=== PATIENT | male | born 1975 | race Caucasian/White ===

== ENCOUNTER 2020-06-20 11:39 | Outpatient (REF) | payer BC, SELFPAY ==
[2020-06-20 11:44] LABS: MANUAL DIFF FLAG NO
[2020-06-20 12:18] LABS: White Blood Count 6.7 X10*3/uL (4.8-10.8)
[2020-06-20 12:19] LABS: Basophils Percent Auto 0.4 % (0-2); Eosinophils Absolute Auto 0.1 X10*3/uL (0.0-0.4); Eosinophils Percent Auto 1.9 % (0-4); Hematocrit 44.2 % (42-52); Hemoglobin 14.5 g/dl (14.0-18.0); Imm Gran Abs Auto 0.02 X10*3/uL (0.00-0.03); Imm Gran Pct Auto 0.3 % (0.0-0.4); Lymphocytes Absolute Auto 2.4 X10*3/uL (1.2-4.9); Lymphocytes Percent Auto 35.6 % (20-40); Mean Corpuscular HGB Conc 32.8 g/dl (31.0-36.0); Mean Corpuscular Hemoglobin 30.9 pg (27.0-33.0); Mean Corpuscular Volume 94.2 fL (80-98); Mean Platelet Volume 9.3 fL (9.4-12.4); Monocytes Absolute Auto 0.6 X10*3/uL (0.1-1.2); Monocytes Percent Auto 8.8 % (2-11); Neutrophils Absolute Auto 3.6 X10*3/uL (2.0-8.3); Platelet Count 211 X10*3/uL (160-400); Red Blood Count 4.69 X10*6/uL (4.60-5.80); Red Cell Distribution Width 13.2 % (11.0-16.0)
[2020-06-20 12:30] LABS: Glucose Urine UA NEG (NEG); Leukocyte Esterase Urine NEG (NEG); Nitrite Urine NEG (NEG); Specific Gravity - Urine 1.025 (1.005-1.025); Urine Blood NEG (NEG); Urine Ketones NEG (NEG); Urine Protein NEG (NEG-TRACE)
[2020-06-20 12:36] LABS: Appearance Urine CLEAR; Color Urine YELLOW
[2020-06-20 13:07] LABS: Alanine Aminotransferase 23 U/L (0-40); Albumin Level 4.2 g/dL (3.5-5.0); Alkaline Phosphatase 86 U/L (39-117); Anion Gap 14 (12-20); Aspartate Amino Transferase 19 U/L (5-37); Bilirubin Total 0.5 mg/dL (0.0-1.0); Blood Urea Nitrogen 16 mg/dL (9-16); Calcium 8.9 mg/dL (8.4-10.2); Carbon Dioxide 26 mmol/L (22-29); Chloride 104 mmol/L (96-108); Cholesterol 212 mg/dL; Estimated Glomerular Filt Rate > 60; Glucose Fasting 94 mg/dL (60-99); HDL Cholesterol 38 mg/dL; LDL Cholesterol Calculated 148 mg/dl; Potassium 3.7 mmol/L (3.3-5.1); Sodium 140 mmol/L (135-145); Total Protein 6.7 g/dL (6.5-8.0); Triglycerides 130 mg/dL
[2020-06-20 13:31] LABS: Prostate Specific Antigen Scr 1.34 ng/mL (<0.05-4.0)
== END 2020-06-20 11:40 | disposition home or self-care (01) ==
LOC: HO.LNP 11:39
PROVIDERS: Visit Provider Internal Medicine
DX: Z00.00 Encounter for general adult medical examination without abnormal findings (principal); Z12.5 Encounter for screening for malignant neoplasm of prostate; E78.00 Pure hypercholesterolemia, unspecified
CPT/HCPCS: 80053; 80061; 81003; 84153; 85025

== ENCOUNTER 2021-06-26 10:09 | Outpatient (REF) | payer BC, SELFPAY ==
[2021-06-26 10:12] LABS: MANUAL DIFF FLAG NO
[2021-06-26 10:59] LABS: Appearance Urine CLEAR; Basophils Percent Auto 0.3 % (0-2); Color Urine YELLOW; Eosinophils Absolute Auto 0.1 X10*3/uL (0.0-0.4); Eosinophils Percent Auto 1.3 % (0-4); Glucose Urine UA NEG (NEG); Hematocrit 49.6 % (42.0-52.0); Hemoglobin 16.2 g/dl (14.0-18.0); Imm Gran Abs Auto 0.02 X10*3/uL (0.00-0.03); Imm Gran Pct Auto 0.3 % (0.0-0.4); Leukocyte Esterase Urine NEG (NEG); Lymphocytes Absolute Auto 2.6 X10*3/uL (1.2-4.9); Lymphocytes Percent Auto 37.6 % (20-40); Mean Corpuscular HGB Conc 32.7 g/dl (31.0-36.0); Mean Corpuscular Hemoglobin 30.5 pg (27.0-33.0); Mean Corpuscular Volume 93.4 fL (80.0-98.0); Mean Platelet Volume 9.4 fL (9.4-12.4); Monocytes Absolute Auto 0.6 X10*3/uL (0.1-1.2); Monocytes Percent Auto 8.5 % (2-11); Neutrophils Absolute Auto 3.6 x10*3/uL (2.0-8.3); Nitrite Urine NEG (NEG); Platelet Count 215 X10*3/uL (160-400); Red Blood Count 5.31 X10*6/uL (4.60-5.80); Red Cell Distribution Width 12.5 % (11.0-16.0); Specific Gravity - Urine 1.025 (1.005-1.025); Urine Blood NEG (NEG); Urine Ketones NEG (NEG); Urine Protein NEG (NEG-TRACE)
[2021-06-26 11:16] LABS: Alanine Aminotransferase 32 U/L (0-40); Albumin Level 4.3 g/dL (3.5-5.0); Alkaline Phosphatase 89 U/L (39-117); Anion Gap 11 (12-20); Aspartate Amino Transferase 23 U/L (5-37); Bilirubin Total 0.7 mg/dL (0.0-1.0); Blood Urea Nitrogen 19 mg/dL (9-16); Calcium 9.9 mg/dL (8.4-10.2); Carbon Dioxide 28 mmol/L (22-29); Chloride 103 mmol/L (96-108); Cholesterol 229 mg/dL; Estimated Glomerular Filt Rate 59; Glucose Fasting 100 mg/dL (60-99); HDL Cholesterol 38 mg/dL; LDL Cholesterol Calculated 166 mg/dl; Potassium 4.4 mmol/L (3.3-5.1); Sodium 138 mmol/L (135-145); Total Protein 6.8 g/dL (6.5-8.0); Triglycerides 128 mg/dL
[2021-06-26 11:49] LABS: PSA,Total (Free>4and<10) 1.85 ng/mL (0.00-4.00)
== END 2021-06-26 10:10 | disposition home or self-care (01) ==
LOC: HO.LNP 10:09
PROVIDERS: Visit Provider Internal Medicine
DX: Z00.00 Encounter for general adult medical examination without abnormal findings (principal); Z12.5 Encounter for screening for malignant neoplasm of prostate; E78.5 Hyperlipidemia, unspecified; E78.00 Pure hypercholesterolemia, unspecified
CPT/HCPCS: 80053; 80061; 81003; 84153; 85025

== ENCOUNTER 2022-06-29 11:08 | Outpatient (REF) | payer BC, SELFPAY ==
[2022-06-29 11:14] LABS: MANUAL DIFF FLAG NO
[2022-06-29 11:55] LABS: Appearance Urine Clear; Color Urine Yellow; Glucose Urine UA Negative (Negative); Leukocyte Esterase Urine Negative (Negative); Nitrite Urine Negative (Negative); PH 6.5 (5.0-9.0); Specific Gravity - Urine 1.025 (1.005-1.025); Urine Blood Negative (Negative); Urine Ketones Negative (Negative); Urine Protein Negative (Neg-Trace)
[2022-06-29 11:58] LABS: Basophils Percent Auto 0.3 % (0-2); Eosinophils Absolute Auto 0.1 X10*3/uL (0.0-0.4); Hemoglobin 15.6 g/dl (14.0-18.0); Imm Gran Abs Auto 0.02 X10*3/uL (0.00-0.03); Imm Gran Pct Auto 0.3 % (0.0-0.4); Lymphocytes Absolute Auto 2.3 X10*3/uL (1.2-4.9); Lymphocytes Percent Auto 38.4 % (20-40); Mean Corpuscular HGB Conc 33.2 g/dl (31.0-36.0); Mean Corpuscular Hemoglobin 30.7 pg (27.0-33.0); Mean Corpuscular Volume 92.5 fL (80.0-98.0); Mean Platelet Volume 9.4 fL (9.4-12.4); Monocytes Absolute Auto 0.7 X10*3/uL (0.1-1.2); Monocytes Percent Auto 11.2 % (2-11); Neutrophils Absolute Auto 2.8 x10*3/uL (2.0-8.3); Neutrophils Percent Auto 47.8 % (45-73); Platelet Count 209 X10*3/uL (160-400); Red Blood Count 5.08 X10*6/uL (4.60-5.80); Red Cell Distribution Width 12.6 % (11.0-16.0); White Blood Count 5.9 X10*3/uL (4.8-10.8)
[2022-06-29 11:59] LABS: Bacteria Urine None Seen (None Seen); Hyaline Casts Urine 0-2 /LPF (0-2); RBC Urine 0-2 /HPF (0-2); Squamous Epithelial Cell Urine 0-2 /HPF (0-2); WBC Urine 0-5 /HPF (0-5)
[2022-06-29 12:35] LABS: Alanine Aminotransferase 33 U/L (0-40); Albumin Level 4.2 g/dL (3.5-5.0); Alkaline Phosphatase 92 U/L (39-117); Anion Gap 12 (12-20); Aspartate Amino Transferase 22 U/L (5-37); Bilirubin Total 0.6 mg/dL (0.0-1.0); Blood Urea Nitrogen 19 mg/dL (9-16); Calcium 8.8 mg/dL (8.4-10.2); Carbon Dioxide 28 mmol/L (22-29); Chloride 103 mmol/L (96-108); Cholesterol 207 mg/dL; Estimated Glomerular Filt Rate 59; Glucose Fasting 101 mg/dL (60-99); HDL Cholesterol 31 mg/dL; LDL Cholesterol Calculated 150 mg/dl; Potassium 4.2 mmol/L (3.3-5.1); Sodium 139 mmol/L (135-145); Total Protein 6.5 g/dL (6.5-8.0); Triglycerides 134 mg/dL
[2022-06-29 12:52] LABS: PSA,Total (Free>4and<10) 1.65 ng/mL (0.00-4.00)
== END 2022-06-29 11:09 | disposition home or self-care (01) ==
LOC: HO.LNP 11:08
PROVIDERS: Visit Provider Internal Medicine
DX: Z00.00 Encounter for general adult medical examination without abnormal findings (principal); Z12.5 Encounter for screening for malignant neoplasm of prostate; E78.6 Lipoprotein deficiency; E78.00 Pure hypercholesterolemia, unspecified
CPT/HCPCS: 80053; 80061; 81001; 84153; 85025

== ENCOUNTER 2023-07-04 11:10 | Outpatient (REF) | payer BC, SELFPAY ==
[2023-07-04 11:16] LABS: MANUAL DIFF FLAG NO
[2023-07-04 12:01] LABS: Basophils Percent Auto 0.5 % (0-2); Eosinophils Absolute Auto 0.1 X10*3/uL (0.0-0.4); Eosinophils Percent Auto 1.2 % (0-4); Hemoglobin 15.9 g/dl (14.0-18.0); Imm Gran Abs Auto 0.02 X10*3/uL (0.00-0.03); Imm Gran Pct Auto 0.3 % (0.0-0.4); Lymphocytes Percent Auto 30.5 % (20-40); Mean Corpuscular HGB Conc 33.1 g/dl (31.0-36.0); Mean Corpuscular Hemoglobin 30.8 pg (27.0-33.0); Mean Corpuscular Volume 92.8 fL (80.0-98.0); Mean Platelet Volume 9.3 fL (9.4-12.4); Monocytes Absolute Auto 0.6 X10*3/uL (0.1-1.2); Monocytes Percent Auto 9.7 % (2-11); Neutrophils Absolute Auto 3.8 x10*3/uL (2.0-8.3); Neutrophils Percent Auto 57.8 % (45-73); Platelet Count 208 X10*3/uL (160-400); Red Blood Count 5.17 X10*6/uL (4.60-5.80); Red Cell Distribution Width 12.9 % (11.0-16.0); White Blood Count 6.6 X10*3/uL (4.8-10.8)
[2023-07-04 12:07] LABS: Appearance Urine Clear; Color Urine Yellow; Glucose Urine UA Negative (Negative); Leukocyte Esterase Urine Negative (Negative); Nitrite Urine Negative (Negative); Specific Gravity - Urine 1.025 (1.005-1.025); Urine Blood Negative (Negative); Urine Ketones Negative (Negative); Urine Protein Negative (Neg-Trace)
[2023-07-04 12:13] LABS: Bacteria Urine None Seen (None Seen); Hyaline Casts Urine 0-2 /LPF (0-2); RBC Urine 0-2 /HPF (0-2); Squamous Epithelial Cell Urine 0-2 /HPF (0-2); WBC Urine 0-5 /HPF (0-5)
[2023-07-04 12:26] LABS: Alanine Aminotransferase 32 U/L (0-40); Albumin Level 4.1 g/dL (3.5-5.0); Alkaline Phosphatase 79 U/L (39-117); Anion Gap 14 (12-20); Aspartate Amino Transferase 23 U/L (5-37); Bilirubin Total 0.4 mg/dL (0.0-1.0); Blood Urea Nitrogen 21 mg/dL (9-16); Calcium 9.5 mg/dL (8.4-10.2); Carbon Dioxide 27 mmol/L (22-29); Chloride 103 mmol/L (96-108); Cholesterol 203 mg/dL (<200); Estimated Glomerular Filt Rate > 60; Glucose Fasting 97 mg/dL (60-99); HDL Cholesterol 37 mg/dL (>40); LDL Cholesterol Calculated 131 mg/dL (<100); Potassium 4.4 mmol/L (3.3-5.1); Sodium 140 mmol/L (135-145); Triglycerides 175 mg/dL (<150)
[2023-07-04 12:41] LABS: PSA,Total (Free>4and<10) 1.88 ng/mL (0.00-4.00)
== END 2023-07-04 11:11 | disposition home or self-care (01) ==
LOC: HO.LNP 11:10
PROVIDERS: Visit Provider Internal Medicine
DX: Z00.00 Encounter for general adult medical examination without abnormal findings (principal); Z12.5 Encounter for screening for malignant neoplasm of prostate; E78.00 Pure hypercholesterolemia, unspecified
CPT/HCPCS: 80053; 80061; 81001; 84153; 85025

== ENCOUNTER 2024-07-06 11:59 | Outpatient (REF) | payer BC, SELFPAY ==
[2024-07-06 12:02] LABS: MANUAL DIFF FLAG NO
[2024-07-06 12:21] LABS: Basophils Percent Auto 0.4 % (0-2); Eosinophils Absolute Auto 0.1 X10*3/uL (0.0-0.4); Eosinophils Percent Auto 1.8 % (0-4); Hematocrit 45.5 % (42.0-52.0); Hemoglobin 15.6 g/dl (14.0-18.0); Imm Gran Abs Auto 0.02 X10*3/uL (0.00-0.03); Imm Gran Pct Auto 0.3 % (0.0-0.4); Lymphocytes Absolute Auto 2.6 X10*3/uL (1.2-4.9); Lymphocytes Percent Auto 37.8 % (20-40); Mean Corpuscular HGB Conc 34.3 g/dl (31.0-36.0); Mean Corpuscular Hemoglobin 31.4 pg (27.0-33.0); Mean Corpuscular Volume 91.5 fL (80.0-98.0); Mean Platelet Volume 9.3 fL (9.4-12.4); Monocytes Absolute Auto 0.7 X10*3/uL (0.1-1.2); Monocytes Percent Auto 10.1 % (2-11); Neutrophils Absolute Auto 3.4 x10*3/uL (2.0-8.3); Neutrophils Percent Auto 49.6 % (45-73); Platelet Count 210 X10*3/uL (160-400); Red Blood Count 4.97 X10*6/uL (4.60-5.80); Red Cell Distribution Width 12.5 % (11.0-16.0); White Blood Count 6.8 X10*3/uL (4.8-10.8)
[2024-07-06 12:24] LABS: Appearance Urine Clear; Color Urine Yellow; Glucose Urine UA Negative (Negative); Leukocyte Esterase Urine Negative (Negative); Nitrite Urine Negative (Negative); Urine Blood Negative (Negative); Urine Ketones Negative (Negative); Urine Protein Negative (Neg-Trace)
[2024-07-06 12:27] LABS: Bacteria Urine None Seen (None Seen); Hyaline Casts Urine 0-2 /LPF (0-2); RBC Urine 0-2 /HPF (0-2); Squamous Epithelial Cell Urine 0-2 /HPF (0-2); WBC Urine 0-5 /HPF (0-5)
[2024-07-06 12:40] LABS: Alanine Aminotransferase 24 U/L (0-40); Alkaline Phosphatase 73 U/L (39-117); Anion Gap 11 (12-20); Aspartate Amino Transferase 27 U/L (5-37); Bilirubin Total 0.5 mg/dL (0.0-1.0); Blood Urea Nitrogen 17 mg/dL (9-16); Calcium 8.8 mg/dL (8.4-10.2); Carbon Dioxide 26 mmol/L (22-29); Chloride 107 mmol/L (96-108); Cholesterol 184 mg/dL (<200); Estimated Glomerular Filt Rate > 60; Glucose Fasting 93 mg/dL (60-99); HDL Cholesterol 33 mg/dL (>40); LDL Cholesterol Calculated 127 mg/dL (<100); Potassium 3.9 mmol/L (3.3-5.1); Sodium 140 mmol/L (135-145); Total Protein 6.9 g/dL (6.5-8.0); Triglycerides 121 mg/dL (<150)
[2024-07-06 12:54] LABS: PSA,Total (Free>4and<10) 1.71 ng/mL (0.00-4.00)
--- OUTSIDE RECORDS SUMMARY | 2024-07-06 13:41 | XMS_ITS ---
Author Organization Ji Valenzuela MD Address [address] [place], [place] [phone] Care Team Providers Care Clerical Clerk Name Role Phone Ji Valenzuela Primary Care Provider Results Component Value Reference Range Notes Complete Blood Count Auto Di ff (Not yet reviewed by provider) Interpretation: Performing Lab:[facility], [address] [place] [phone] Notes/Report: White Blood Count 6.8 4.8-10.8 X10*3/uL [...] NRBC Abs Auto 0.000 0.0-0.012 X10*3/uL Comprehensive [place]. Panel Fa st (Not yet reviewed by provider) Interpretation: Performing Lab:[facility], [address] [place] [address] Notes/Report: Sodium 140 135-145 mmol/L Potassium 3.9 [...] 3.5-5.0 g/dL Alkaline Phosphatase 73 39-117 U/L PSA,Total (Free>4and<10) (No t yet reviewed by provider) Interpretation: Performing Lab:[facility], [address] [place] [address] Notes/Report: PSA,Total (Free>4and<10) 1.71 0.00-4.00 ng/mL A [...] Immunoassay (CMIA) UA ClnCatch+Micro w/rflx Cul t (Not yet reviewed by provider) Interpretation: Performing Lab:[facility], [address] [place] [phone] Notes/Report: Urine, Clean Catch Color Urine Yellow Appearance Urine Clear PH 6.0 5.0-9.0 Glucose Urine UA Negative Negative mg/dL Urine Blood Negative Negative Specific [place] - Urine 1.020 1.005-1.025 Urine Protein Negative Neg-Trace mg/dL Urine Ketones Negative Negative mg/dL Nitrite Urine Negative Negative Leukocyte Esterase Urine Negative Negative RBC Urine 0-2 0-2 /HPF WBC Urine 0-5 0-5 /HPF Squamous Epithelial Cell Urine 0-2 0-2 /HPF Bacteria Urine None Seen None Seen Hyaline Casts Urine 0-2 0-2 /LPF Lipid Panel Reviewed date:07/06/2024 12:45:42 PM Interpretation: Performing Lab:[facility], [address] [place] [phone] Notes/Report: Triglycerides 121 <150 mg/dL Desirable Triglyceride: [...] low results in patients with liver disease. REASON FOR VISIT FASTING LABS Encounters Encounter Location Date Provider Diagnosis Ji Valenzuela MD [address] [place] [address] Drive [address] [place], [place] [phone] 07/06/2024 Ji Valenzuela Blood tests for rout ine general physical examination Z00.00 and Pure hypercholesterolemia E78.00 Assessments Encounter Date Diagnosis (ICD Code) Assessment Notes Treatment Notes Treatment Clinical Notes Section Notes 07/06/2024 Blood tests for rout ine general physical examination (ICD-10 - Z00.00) 07/06/2024 Pure hypercholesterolemia (ICD-10 - E78.00) Plan Of Treatment Pending Test Test Name Order Date Complete Blood Count Auto Diff Comprehensive [place]. Panel Fast PSA,Total (Free>4and<10) 07/06/2024 UA ClnCatch+Micro w/rflx Cult 07/06/2024 Next Appt Details Provider Name:Ji Elizondo ier, 07/13/2024 08:30:00 AM, [address], [address], [place], [place], [phone], Progress Notes * Darian MILLER FDOB:[birth year] (49 yo M)Acc No.[id number]:07/06/2024 Progress Note Patient:?Darian MILLER Provider:?Ji Valenzuela MD :1975???Age:49 Y???Sex:Male Christo e:07/06/2024 Address:[address] [place], [place] [phone] Subjective: * Chief Complaints: * ???1. FASTING LABS. * Medical History:? Objective: * Vitals:? Assessment: * Assessment: 1.?Blood tests for routine g eneral physical examination - Z00.00 (Primary)???2.?Pure hypercholesterolemia - E78.00??? Plan: * Treatment: 2.?Pure hypercholesterolemia ?LAB: Complete Blood Count Auto Diff (Collection Date & Time - 07/06/2024 10:30 AM) ?LAB: Comprehensive [place]. Panel Fast (Collection Date & Time - 07/06/2024 10:30 AM) ?LAB: PSA,Total (Free>4and<10) (Collection Date & Time - 07/06/2024 10:30 AM) ?LAB: UA ClnCatch+Micro w/rflx Cult (Collection Date & Time - 07/06/2024 10:30 AM) ?LAB: Lipid Panel (Collection Date & Time - 07/06/2024 10:30 AM) * Procedure Codes:?82255 VENIP UNCT, ROUTINE* * * The named appointment provid er may or may not be the originator of this progress note, and it is not deemed complete until electronically signed by the appointment provider. Sign off status: Pending * Provider:?Ji Valenzuela MD Date:?0 07/06/2024 Generated for Nathen aburto/Melissa/Gurpreetitting on:?07/06/2024 01:41 PM EDT
--- OUTSIDE RECORDS SUMMARY | 2024-07-06 13:41 | XMS_ITS ---
Author Organization [facility] Address [address] [place] [address] Care Team Providers Care Monument Setter Helper Name Role Phone Ji Valenzuela MD Primary Care Provider Josue Amaral [phone] Encounters Encounter Location Date Provider Diagnosis [facility] [address] [place] [address] 06/09/2024 Josue Jones Plan Of Treatment Next Appt Details Provider Name:Josue Jones , 09/30/2024 03:20:00 PM, [address], [address], [place], [address], Progress Notes * FELIZ BEACHINDOB: [birth year] (49 yo M)Acc No.[id number]:06/09/2024 Patient:?DOLORES BEACH :1975???Age:49 Y???Sex:Male Address:[place], [address] * true * Date:? Generated for Printi lamonte/Melissa/eTransmitting on:?07/06/2024 01:41 PM EDT
--- OUTSIDE RECORDS SUMMARY | 2024-07-06 13:42 | XMS_ITS ---
Author Organization Ji Valenzuela MD Address [address] [place] [phone] Care Team Providers Care Metal Engraver Name Role Phone Ji Valenzuela Primary Care Provider [phone] REASON FOR VISIT annual visit, No Covid [...] 07/11/2023 Encounters Encounter Location Date Provider Diagnosis Ji Valenzuela MD [address] [place] [address] Drive [address] [place] [phone] 07/11/2023 Ji Valenzuela Physical exam, annua l [...] Follow Up: 1 Year, Reason: Provider Name:Ji metcalf, 07/13/2024 08:30:00 AM, [address] [facility], [address], [place], [place], [phone], Progress Notes * Darian MILLER FDOB:[birth year] (48 yo M)Acc No.[id number]:07/11/2023 Progress Notes Patient:?Darian Miller Provider:?Ji Valenzuela MD :1975???Age:48 Y???Sex:Male Christo e:07/11/2023 Address:[address] [place], [place] [phone] Subjective: * Chief Complaints: * ???Annual visitNo Covid symp toms * HPI: ???Depression Screening:?PHQ-9?Little interest or pleasure in doing things?Not at all,?Feeling down, depressed, or hopeless?Not at all,?Trouble falling or staying asleep, or sleeping too much?Not at all,?Feeling tired or having little energy?Not at all,?Poor appetite or overeating?Not at all,?Feeling bad about yourself or that you are a failure, or have let yourself or your family down?Not at all,?Trouble concentrating on things, such as reading the newspaper or watching television?Not at all,?Moving or speaking so slowly that other people could have noticed; or the opposite, being so fidgety or restless that you have been moving around a lot more than usual?Not at all,?Thoughts that you would be better off or of hurting yourself in some way?Not at all,?Total Score?0.?Interpretation and Intervention?Depression Screening Findings?Negative,?Follow-Up for Depression?: review of PHQ-9 found negative result, no follow-up needed.?Communication Needs:?Communication Needs?Does the patient have a hearing impairment?No,?Does the patient have a vision impairment??Yes,?If yes, what is the vision impairment??Glasses,?Does the patient have a cognition impairment??No.?SDOH Questions:?SDOH Questions?In the past year have you been worried about losing housing??No,?In the past year have you or any family members you live with been unable to get any of the following when it was really needed? Check all that apply:?None.?Symptom(s):? pt is a 48 yo male here for yearly exam nd review of chronic illnessess. * ROS:?General/Constitutional:?Change in appetite?denies.?Chills?denies.?Fever?denies.?Ophthalmologic:?Blurred vision?denies.?Discharge?denies.?Pain?denies.?ENT:?Decreased hearing?denies.?Sore throat?denies.?Swollen glands?denies.?Endocrine:?Cold intolerance?denies.?Excessive thirst?denies.?Heat intolerance?denies.?Weight loss?denies.?Respiratory:?Cough?denies.?Shortness of breath at rest?denies.?Shortness of breath with exertion?denies.?Wheezing?denies.?Cardiovascular:?Chest pain at rest?denies.?Chest pain with exertion?denies.?Irregular heartbeat?denies.?Shortness of breath?denies.?Gastrointestinal:?Abdominal pain?denies.?Change in bowel habits?denies.?Diarrhea?denies.?Nausea?denies.?Rectal bleeding?denies.?Vomiting?denies .?Genitourinary:?Blood in urine?denies.?Difficulty urinating?denies.?Frequent urination?denies.?Musculoskeletal:?Painful joints?denies.?Weakness?denies.?Skin:?Dry skin?denies.?Itching?denies.?Denies?Mole(s),? changes in moles, new moles or any lesions of concern.?Denies?Photosensitivity.?Rash?denies.?Neurologic:?Dizziness?denies.?Fainting?denies.?Headache?denies.? * Medical History:? * Surgical History:? * Hospitalization/Major Diagno stic Procedure:? * Family History:?Father: inocente gill 76 yrs, diagnosed with Hypertension.?Mother: alive 75 yrs, diagnosed with Hypertension.?1 sister(s) . 1 son(s) . .? Denies mental health/substance abuse family history, Denies mental health/substance abuse family history, No pertinent family medical history, No pertinent family medical history. * Social History:?Tobacco Use:?Tobacco Use/Smoking?Patient is a?nonsmoker,?Additional Findings: Tobacco Non-User?Current non-smoker, currently using no form of tobacco.?Drugs/Alcohol:?Alcohol Screen?Did you have a drink containing alcohol in the past year??No,?Points?0,?Interpretation?Negative.?Miscellaneous:?Caffeine: yes, frequency:, 2-3 cups per day. Children: yes. Exercise: yes, 2 miles walk QD. Home smoke detector use: yes. Housing: owning. Living with: spouse. Marital status: . Pets: Hermit crabs,. no Travel outside of the [place]. * Medications:?None * Allergies:?yes[Allergies Felix ified] Objective: * Vitals:?Ht: 65, Wt:197, BMI: 32.78, BP:132/80. * ???Past Orders: ???Lab:Comprehensive [place]. P joselyn Fast (Order Date - 07/04/2023) (Collection Date - 07/04/2023) ? Value Reference Range ?Sodium 140 135-145 - mmo l/L ?Bilirubin Total 0.4 0.0- 1.0 - mg/dL ?Aspartate Amino Transferase 23 5-37 - U/L ?Alanine Aminotransferase 32 0-40 - U/L ?Total Protein 7.0 6.5-8. 0 - g/dL ?Albumin Level 4.1 3.5-5. 0 - g/dL ?Alkaline Phosphatase 79 39-117 - U/L ?Potassium 4.4 3.3-5.1 - mmol/L ?Chloride 103 96-108 - mm ol/L ?Carbon Dioxide 27 22-29 - mmol/L ?Anion Gap 14 12-20 - ?Blood Urea Nitrogen 21 H 9-16 - mg/dL ?Creatinine 1.21 0.5-1.4 - mg/dL ?Estimated Glomerular Filt Rate > 60 - ?Glucose Fasting 97 60-9 9 - mg/dL ?Calcium 9.5 8.4-10.2 - m g/dL ???Lab:Lipid Panel (Order Da te - 07/04/2023) (Collection Date - 07/04/2023) ? Value Reference Range ?Triglycerides 175 H <150 - mg/dL ?Cholesterol 203 H <200 - m g/dL ?LDL Cholesterol Calculated 131 H <100 - mg/dL ?HDL Cholesterol 37 L >40 - mg/dL ???Lab:PSA,Total (Free>4and< 10) (Order Date - 07/04/2023) (Collection Date - 07/04/2023) ? Value Reference Range ?PSA,Total (Free>4and<10) 1.88 0.00-4.00 - ng/mL * Examination: ???General Examination: ?GENERAL APPEARANCE:?well developed, well nourished, in no acute distress.?HEAD:?normocephalic, atraumatic.?EYES:?pupils equal, round, reactive to light and accommodation, sclera non-icteric.?EARS:?normal.?ORAL CAVITY:?mucosa moist.?THROAT:?clear.?NECK/THYROID:?neck supple, full range of motion, no cervical lymphadenopathy, no bruits.?SKIN:?warm and dry, no suspicious lesions.?HEART:?regular rate and rhythm, S1, S2 normal, no murmurs.?LUNGS:?clear to auscultation bilaterally.?ABDOMEN:?soft, nontender, nondistended, bowel sounds present, normal, no organomegaly , no masses palpable.?RECTAL EXAM:?normal tone, no external hemorrhoids, no masses palpable, prostate normal, stool guaiac negative.?MALE GENITOURINARY:?no penile lesions or discharge, circumcised, testes descended bilaterally, no testicular mass.?EXTREMITIES:?no clubbing, cyanosis, or edema.?NEUROLOGIC:?nonfocal, motor strength normal upper and lower extremities, sensory exam intact.? Assessment: * Assessment: 1.?Physical exam, annual - Z 00.00 (Primary)?2.?Pure hypercholesterolemia - E78.00?3.?Low HDL (under 40) - E78.6? Plan: * Treatment: 2.?Pure hypercholesterolemia ? Notes: not high enough to treat.?? 3.?Low HDL (under 40)? Notes: encourage to increase exercise.?? * Procedure Codes:? * Follow Up:?1 Year * * Sign off status: Completed true * Provider:?Ji Valenzuela MD Date:?0 07/11/2023 Generated for Nathen aburto/Melissa/eTransmitting on:?07/06/2024 01:41 PM EDT History and Physical Notes * [...] patient have a vision impairmen t?: Yes ?If yes, what is the vision impairment?: Glasses Does the patient have a cognition impair ment?: No Examination Category Sub-Category Detail Notes Category Not es General Examination GENERAL APPEARANCE: well dev eloped, well nourished, in no acute distress HEAD: normocephalic, atrau matic EYES: pupils equal, round, reactive to light and accommodation, sclera non- icteric EARS: normal THROAT: clear NECK/THYROID: neck supple, [...]
--- OUTSIDE RECORDS SUMMARY | 2024-07-06 13:42 | XMS_ITS ---
Author Organization Ji Valenzuela MD Address [address] [place], [place] [phone] Care Team Providers Care Manufacturing Controls Engineer Name Role Phone Ji Valenzuela Primary Care Provider Results Component Value Reference Range Notes Complete Blood Count Auto Di ff Reviewed date:07/05/2023 05:24:32 PM Interpretation: Performing Lab:[facility], [address] [place] [phone] Notes/Report: White Blood Count 6.6 4.8-10.8 X10*3/uL [...] NRBC Abs Auto 0.000 0.0-0.012 X10*3/uL Comprehensive [place]. Panel Fa st Reviewed date:07/04/2023 02:20:04 PM Interpretation: Performing Lab:[address] [address] Notes/Report: Sodium 140 135-145 mmol/L Potassium 4.4 3.3-5.1 mmol/L Chloride 103 96-108 mmol/L Carbon Dioxide 27 22-29 mmol/L Anion Gap 14 12-20 Blood Urea Nitrogen 21 9-16 mg/dL Creatinine 1.21 0.5-1.4 mg/dL Estimated Glomerular Filt Rate > 60 NOTE: For -[place] individuals, multiply the result by 1.210. Chronic [...] Panel Reviewed date:07/04/2023 12:50:07 PM Interpretation: Performing Lab:[address] [phone] Notes/Report: Triglycerides 175 <150 mg/dL Desirable Triglyceride: [...] (Free>4and<10) Reviewed date:07/04/2023 12:50:39 PM Interpretation: Performing Lab:[address] [address] Notes/Report: PSA,Total (Free>4and<10) 1.88 0.00-4.00 ng/mL A [...] t Reviewed date:07/05/2023 05:20:36 PM Interpretation: Performing Lab:[address] [address] Notes/Report: Urine, Clean Catch Color Urine Yellow Appearance Urine Clear PH 6.0 5.0-9.0 Glucose Urine UA Negative Negative mg/dL Urine Blood Negative Negative Specific [place] - Urine 1.025 1.005-1.025 Urine Protein Negative [...] Valenzuela MD [address] [place], [place] [phone] 07/04/2023 Ji Valenzuela Blood tests for rout ine general physical examination Z00.00 and Pure hypercholesterolemia E78.00 Assessments Encounter Date Diagnosis (ICD Code) Assessment Notes Treatment Notes Treatment Clinical Notes Section Notes 07/04/2023 Blood tests for rout ine general physical examination (ICD-10 - Z00.00) 07/04/2023 Pure hypercholesterolemia (ICD-10 - E78.00) Plan Of Treatment Next Appt Details Provider Name:Ji Elizondo ier, 07/13/2024 08:30:00 AM, [address], [address], [place], [place], [phone], Progress Notes * Darian MILLER FDOB:[birth year] (49 yo M)Acc No.[id number]:07/04/2023 Progress Note Patient:?Darian MILLER Provider:?Ji Valenzuela MD :1975???Age:48 Y???Sex:Male Christo e:07/04/2023 Address:[address] [place], [place] [phone] Subjective: * Chief Complaints: * ???1. Yeary labs. * Medical History:? Objective: * Vitals:? Assessment: * Assessment: 1.?Blood tests for routine g eneral physical examination - Z00.00 (Primary)???2.?Pure hypercholesterolemia - E78.00??? Plan: * Treatment: 2.?Pure hypercholesterolemia ?LAB: Complete Blood Count Auto Diff (Collection Date & Time - 07/04/2023 07:00 AM) ?LAB: Comprehensive [place]. Panel Fast (Collection Date & Time - 07/04/2023 07:00 AM) ?LAB: Lipid Panel (Collection Date & Time - 07/04/2023 07:00 AM) ?LAB: PSA,Total (Free>4and<10) (Collection Date & Time - 07/04/2023 07:00 AM) ?LAB: UA ClnCatch+Micro w/rflx Cult (Collection Date & Time - 07/04/2023 07:00 AM) * Procedure Codes:?33301 VENIP UNCT, ROUTINE* * * The named appointment provid er may or may not be the originator of this progress note, and it is not deemed complete until electronically signed by the appointment provider. Sign off status: Pending * Provider:?Ji Valenzuela MD Date:?0 07/04/2023 Generated for Nathen aburto/Melissa/Humbertosmitting on:?07/06/2024 01:42 PM EDT
--- OUTSIDE RECORDS SUMMARY | 2024-07-06 13:42 | XMS_ITS | Patient Health Record ---
Author Organization [facility] Address [address] [facility] [address] [place] [address] Care Team Providers Care Applications Consultant Name Role Phone Bianca SRINIVASAN, Ji Primary Care Provider Josue Amaral [phone] Allergies Allergen (clinical drug ingredient) Drug/Non Drug Allergy documented on EMR Reaction Allergy Type Onset Date Status seasonal (uncoded) Unknown Allergy A ctive Reason For Referral No Information Medications Medication SIG (Take, Route, Fr equency, Duration) Notes Start Date End Date Status MoviPrep 100 GM as directed Orally a s directed for 1 dose 04/09/2014 Active Problems Problem Type SNOMED Code ICD Code Onset Dates Problem Status W/U Status Risk Notes Problem Feces contents abnormal (049198272) Heme + stool (792.1) Active confirmed Encounters Encounter Location Date Provider Diagnosis [facility] [address] [place] [phone] 06/09/2024 Josue Jones Plan Of Treatment Future Test Test Name Order Date COLONOSCOPY 04/09/2014 Next Appt Details Provider Name:Josue Jones , 09/30/2024 03:20:00 PM, [address] [facility], [address], [place], [address], Insurance Providers Payer Name Payer Address Payer Phone Subscriber Number Group Number Insured Name Patient Relationship to Insured Coverage Start Date Coverage End Date [facility] [address] [place], [place] [id number] [id number] LIRAD[place]ES Self - patient is the insured Medical (General) History Medical History History ICD Code Denies [place],DM,CVA,Lung disease,renal dise ase Surgical History Surgery Date(Month/Year) tonsillectomy and adenoidectomy pilonidal cyst removal X 3
--- OUTSIDE RECORDS SUMMARY | 2024-07-06 13:42 | XMS_ITS | Patient Health Record ---
Author Organization Ji Valenzuela MD Address [address] [place], [place] [phone] Care Team Providers Care Private Branch Exchange Repairer Name Role Phone Ji Valenzuela Primary Care Provider [phone] Allergies No Known Allergies Results Component Value Reference Range Notes Complete Blood Count Auto Di ff (Not yet reviewed by provider) Interpretation: Performing Lab:[facility], [address] [place] [phone] Notes/Report: White Blood Count 6.8 4.8-10.8 X10*3/uL [...] NRBC Abs Auto 0.000 0.0-0.012 X10*3/uL Comprehensive [place]. Panel Fa st (Not yet reviewed by provider) Interpretation: Performing Lab:[facility], [address] [place] [address] Notes/Report: Sodium 140 135-145 mmol/L Potassium 3.9 [...] t yet reviewed by provider) Interpretation: Performing Lab:[facility], [address] [place] [address] Notes/Report: PSA,Total (Free>4and<10) 1.71 0.00-4.00 ng/mL A [...] (Not yet reviewed by provider) Interpretation: Performing Lab:[facility], [address] [place] [phone] Notes/Report: Urine, Clean Catch Color Urine Yellow Appearance Urine Clear PH 6.0 5.0-9.0 Glucose Urine UA Negative Negative mg/dL Urine Blood Negative Negative Specific [place] - Urine 1.020 1.005-1.025 Urine Protein Negative Neg-Trace mg/dL Urine Ketones Negative Negative mg/dL Nitrite Urine Negative Negative Leukocyte Esterase Urine Negative Negative RBC Urine 0-2 0-2 /HPF WBC Urine 0-5 0-5 /HPF Squamous Epithelial Cell Urine 0-2 0-2 /HPF Bacteria Urine None Seen None Seen Hyaline Casts Urine 0-2 0-2 /LPF Lipid Panel Reviewed date:07/06/2024 12:45:42 PM Interpretation: Performing Lab:[facility], [address] [place] [phone] Notes/Report: Triglycerides 121 <150 mg/dL Desirable Triglyceride: [...] low results in patients with liver disease. Reason For Referral No Information Immunizations Vaccine Route Administration Date Status Comme nts Flu Vaccine Unknown 02/10/2012 Administered Flu Vaccine Unknown 02/23/2014 Administered Getting at work today Flu Vaccine Unknown 02/25/2015 Administered At work Sharon s Elevator Fluarix Quadrivalent Unknown 02/24/2016 Administered Wo rk Ottoniel Elevator Fluarix Quadrivalent Unknown 02/22/2017 Administered At work Fluarix Quadrivalent Unknown 02/12/2018 Administered gi randy at work. TDaP Unknown 09/06/2018 Administered Tetanus Unknown 09/06/2018 Administered Fluarix Quadrivalent Unknown 02/10/2019 Administered at work Fluarix Quadrivalent Unknown 01/21/2020 Administered Wa marixa's SARS-COV-2 Moderna Unknown 07/18/2020 Administered SARS-COV-2 Moderna Unknown 08/15/2020 Administered SARS-COV-2 Moderna Unknown 03/24/2021 Administered SARS-COV-2 Moderna Unknown 01/26/2022 Administered Social History Tobacco Use: Social History Observation [...] ast year? No Points 0 Interpretation Negative Problems Problem Type SNOMED Code ICD Code Onset Dates Problem Status W/U Status Risk Notes Problem 812797890 Body mass index (BMI) 31.0-31.9, adult (Z68.31) Active confirmed Problem 138274947 Low HDL (under 4 0) (E78.6) Active confirmed Problem 989846670 Pure hypercholesterolemia (E78.00) Active confirmed Problem 163612923 BMI 32.0-32.9,ad ult (Z68.32) Active confirmed Problem 367870833 BMI 31.0-31.9,ad ult (Z68.31) Active confirmed Problem 73006967793461805 Plantar wart o f left foot (B07.0) Active confirmed Vital Signs Blood pressure diastolic 80 mm Hg 07/11/2023 Height 65 in 07/11/2023 Blood pressure systolic 132 mm Hg 07/11/2023 Weight 197 lbs 07/11/2023 BMI 32.78 kg/m2 07/11/2023 Encounters Encounter Location Date Provider Diagnosis Ji Valenzuela MD [address] [place] [phone] 07/06/2024 Ji Valenzuela Blood tests for rout ine general physical examination Z00.00 and Pure hypercholesterolemia E78.00 Ji Valenzuela MD [address] [place] [address] Drive [address] [place], [place] [phone] 07/11/2023 Ji Valenzuela Physical exam, annua l Z00.00 ; Pure hypercholesterolemia E78.00 and Low HDL (under 40) E78.6 Assessments Encounter Date Diagnosis (ICD Code) Assessment Notes Treatment Notes Treatment Clinical Notes Section Notes 07/06/2024 Blood tests for rout ine general physical examination (ICD-10 - Z00.00) 07/11/2023 Physical exam, annua l (ICD-10 - Z00.00) labs reviewed and discussed with pt 07/11/2023 Pure hypercholesterolemia (ICD-10 - E78.00) not high enough to treat 07/06/2024 Pure hypercholesterolemia (ICD-10 - E78.00) 07/11/2023 Low HDL (under 40) (ICD-10 - E78.6) encourage to increase exercise Plan Of Treatment Pending Test Test Name Order Date Electrocardiogram (EKG) 04/26/2017 Electrocardiogram (EKG) 05/14/2019 Complete Blood Count Auto Diff 5 Comprehensive [place]. Panel Fast 5 PSA,Total (Free>4and<10) 07/06/2024 UA ClnCatch+Micro w/rflx Cult 07/06/2024 Next Appt Details Provider Name:Ji bowier, 07/13/2024 08:30:00 AM, [address] [place] [address], [address], [place], [place], [phone], Insurance Providers Payer Name Payer Address Payer Phone Subscriber Number Group Number Insured Name Patient Relationship to Insured Coverage Start Date Coverage End Date [employer] [address] [place], [place] [id number] Darian Miller Self - patient is the insured Medical (General) History Medical History History ICD Code Colonoscopy - 06/08/[address] Jones (re peat at age 49 - 10 yrs)
== END 2024-07-06 12:00 | disposition home or self-care (01) ==
LOC: HO.LNP 11:59
PROVIDERS: Visit Provider Internal Medicine
DX: Z00.00 Encounter for general adult medical examination without abnormal findings (principal); E78.00 Pure hypercholesterolemia, unspecified; Z12.5 Encounter for screening for malignant neoplasm of prostate
CPT/HCPCS: 80053; 80061; 81001; 84153; 85025

== ENCOUNTER 2024-12-30 06:25 | Day surgery (SDC) | payer BC, SELFPAY ==
--- OUTSIDE RECORDS SUMMARY | 2023-07-04 03:00 | XMS_ITS ---
Author Organization Ji Valenzuela MD Address [address] [place], [place] [id number] Care Team Providers Care Automation Architect Name Role Phone Ji Valenzuela Primary Care Provider Results Component Value Reference Range Notes Complete Blood Count Auto Di ff Reviewed date:07/05/2023 05:24:32 PM Interpretation: Performing Lab:[facility], [address] [place] [id number] Notes/Report: White Blood Count 6.6 4.8-10.8 X10*3/uL Red Blood Count 5.17 4.60-5.80 X10*6/uL Hemoglobin 15.9 14.0-18.0 g/dl Hematocrit 48.0 42.0-52.0 % Mean Corpuscular Volume 92.8 80.0-98.0 fL Mean Corpuscular Hemoglobin 30.8 27.0-33.0 pg Mean Corpuscular HGB Conc 33.1 31.0-36.0 g/dl Red Cell Distribution Width 12.9 11.0-16.0 % Platelet Count 208 160-400 X10*3/uL Mean Platelet Volume 9.3 9.4-12.4 fL Neutrophils Percent Auto 57.8 45-73 % Imm Gran Pct Auto 0.3 0.0-0.4 % Lymphocytes Percent Auto 30.5 20-40 % Monocytes Percent Auto 9.7 2-11 % Eosinophils Percent Auto 1.2 0-4 % Basophils Percent Auto 0.5 0-2 % NRBC Pct Auto 0.0 0.0-0.2 /100WBC Neutrophils Absolute Auto 3.8 2.0-8.3 x10*3/u L Imm Gran Abs Auto 0.02 0.00-0.03 X10*3/uL Lymphocytes Absolute Auto 2.0 1.2-4.9 X10*3/u L Monocytes Absolute Auto 0.6 0.1-1.2 X10*3/uL Eosinophils Absolute Auto 0.1 0.0-0.4 X10*3/u L Basophils Absolute Auto 0.0 0.0-0.2 X10*3/uL NRBC Abs Auto 0.000 0.0-0.012 X10*3/uL Comprehensive [place]. Panel Fa st Reviewed date:07/04/2023 02:20:04 PM Interpretation: Performing Lab:[address] [phone] Notes/Report: Sodium 140 135-145 mmol/L Potassium 4.4 3.3-5.1 mmol/L Chloride 103 96-108 mmol/L Carbon Dioxide 27 22-29 mmol/L Anion Gap 14 12-20 Blood Urea Nitrogen 21 9-16 mg/dL Creatinine 1.21 0.5-1.4 mg/dL Estimated Glomerular Filt Rate > 60 NOTE: For -[place] individuals, multiply the result by 1.210. Chronic Kidney Disease: Estimated GFR < 60 mL/min/1.73m2 Severe Kidney Disease: Estimated GFR < 15 mL/min/1.73m2 Glucose Fasting 97 60-99 mg/dL Calcium 9.5 8.4-10.2 mg/dL Bilirubin Total 0.4 0.0-1.0 mg/dL Aspartate Amino Transferase 23 5-37 U/L Alanine Aminotransferase 32 0-40 U/L Total Protein 7.0 6.5-8.0 g/dL Albumin Level 4.1 3.5-5.0 g/dL Alkaline Phosphatase 79 39-117 U/L Lipid Panel Reviewed date:07/04/2023 12:50:07 PM Interpretation: Performing Lab:[address] [phone] Notes/Report: Triglycerides 175 <150 mg/dL Desirable Triglyceride: less than 150 mg/dL Borderline High Triglyceride 150-199 mg/dL High Triglyceride: 200-499 mg/dL Very High Triglyceride: greater than or equal to 5OO mg/dL Cholesterol 203 <200 mg/dL Desirable Cholesterol: less than 200 mg/dL Borderline High Cholesterol: 200-239 mg/dL High Cholesterol: greater than 239 mg/dL LDL Cholesterol Calculated 131 <100 mg/dL Desirable LDL: less than 100 mg/dL Near Optimal/Above Optimal LDL: 110-129 mg/dL Borderline High LDL: 130-159 mg/dL High LDL: 160-189 mg/dL Very High LDL: greater than or equal to 190 mg/dL HDL Cholesterol 37 >40 mg/dL Desirable HDL: greater than 40 mg/dL Note: This HDL assay may give artificially low results in patients with liver disease. PSA,Total (Free>4and<10) Reviewed date:07/04/2023 12:50:39 PM Interpretation: Performing Lab:[address] [phone] Notes/Report: PSA,Total (Free>4and<10) 1.88 0.00-4.00 ng/mL A Free PSA was not performed: The percentage of Free PSA can be used to enhance the differentiation of prostate cancer from benign prostatic disease in subjects whose PSA levels are between 4.0 and 10.0 ng/mL. For subjects whose PSA levels are below 4.0 or above 10.0 ng/mL, the risk of prostate cancer is determined on the basis of the PSA alone. Therefore the % Free PSA is recommended only for those subjects whose PSA levels are between 4.0 and 10.0 ng/mL. PSA methodology: Ponce Alinity i Chemiluminescent Microparticle Immunoassay (CMIA) UA ClnCatch+Micro w/rflx Cul t Reviewed date:07/05/2023 05:20:36 PM Interpretation: Performing Lab:[address] [phone] Notes/Report: Urine, Clean Catch Color Urine Yellow Appearance Urine Clear PH 6.0 5.0-9.0 Glucose Urine UA Negative Negative mg/dL Urine Blood Negative Negative Specific [place] - Urine 1.025 1.005-1.025 Urine Protein Negative Neg-Trace mg/dL Urine Ketones Negative Negative mg/dL Nitrite Urine Negative Negative Leukocyte Esterase Urine Negative Negative RBC Urine 0-2 0-2 /HPF WBC Urine 0-5 0-5 /HPF Squamous Epithelial Cell Urine 0-2 0-2 /HPF Bacteria Urine None Seen None Seen Hyaline Casts Urine 0-2 0-2 /LPF REASON FOR VISIT yeary labs Encounters Encounter Location Date Provider Diagnosis Ji Valenzuela MD [address] [place] [address] [place] [phone] 07/04/2023 Ji Valenzuela Blood tests for rout ine general physical examination Z00.00 and Pure hypercholesterolemia E78.00 Assessments Encounter Date Diagnosis (ICD Code) Assessment Notes Treatment Notes Treatment Clinical Notes Section Notes 07/04/2023 Blood tests for rout ine general physical examination (ICD-10 - Z00.00) 07/04/2023 Pure hypercholesterolemia (ICD-10 - E78.00) Plan Of Treatment Next Appt Details Provider Name:Ji metcalf, 07/08/2025 07:45:00 AM, [address] [place] [address], Suite [facility], [place], [place], [phone], Provider Name:Ji metcalf, 07/15/2025 09:30:00 AM, [address] [place] [address], [place] [address], [place], [place], [phone], Progress Notes * Darian MILLER FDOB:[birth year] (49 yo M)Acc No.[id number]:07/04/2023 Progress Note Patient: Darian NGUYEN Provider: Carmel Valenzuela MD :1975 A ge:48 Y S ex:Male Date:07/04/2023 Address:[address] [place], [place] [id number] Subjective: * Chief Complaints: * 1 . Yeary labs. * Medical History: Objective: * Vitals: Assessment: * Assessment: 1. B lood tests for routine general physical examination - Z00.00 (Primary) 2 .?Pure hypercholesterolemia - E78.00 Plan: * Treatment: 2. P ure hypercholesterolemia L AB: Complete Blood Count Auto Diff (Collection Date & Time - 07/04/2023 07:00 AM) L AB: Comprehensive [place]. Panel Fast (Collection Date & Time - 07/04/2023 07:00 AM) L AB: Lipid Panel (Collection Date & Time - 07/04/2023 07:00 AM) L AB: PSA,Total (Free>4and<10) (Collection Date & Time - 07/04/2023 07:00 AM) L AB: UA ClnCatch+Micro w/rflx Cult (Collection Date & Time - 07/04/2023 07:00 AM) * Procedure Codes: 3 6415 VENIPUNCT, ROUTINE* * * The named appointment provid er may or may not be the originator of this progress note, and it is not deemed complete until electronically signed by the appointment provider. Sign off status: Pending * Provider: Carmel Valenzuela MD Date: 0 07/04/2023 Generated for Nathen aburto/Melissa/Gurpreetitting on: 0 12/25/2024 12:57 PM EDT
--- OUTSIDE RECORDS SUMMARY | 2023-07-11 04:30 | XMS_ITS ---
Author Organization Ji Valenzuela MD Address [address] [place] [phone] Care Team Providers Care Care Provider Name Role Phone Ji Valenzuela Primary Care Provider [phone] REASON FOR VISIT annual visit, No Covid symptoms Social History Tobacco Use: Social History Observation Description Date Details (start date - stop date) Never Smoker NA - NA Tobacco Use/Smoking Question Answer Notes Patient is a nonsmoker Additional Findings: Tobacco Non-User Cu rrent non-smoker, currently using no form of tobacco Alcohol Screen Question Answer Notes Did you have a drink containing alcohol in the p ast year? No Points 0 Interpretation Negative Vital Signs Blood pressure systolic 132 mm Hg 07/11/19 24 Blood pressure diastolic 80 mm Hg 024 Height 65 in 07/11/2023 Weight 197 lbs 07/11/2023 BMI 32.78 kg/m2 07/11/2023 Encounters Encounter Location Date Provider Diagnosis iJ Valenzuela MD [address] [place] [address] Drive [address] [place] [phone] 07/11/2023 Ji Valenzuela Physical exam, annua l Z00.00 ; Pure hypercholesterolemia E78.00 and Low HDL (under 40) E78.6 Assessments Encounter Date Diagnosis (ICD Code) Assessment Notes Treatment Notes Treatment Clinical Notes Section Notes 07/11/2023 Physical exam, annua l (ICD-10 - Z00.00) labs reviewed and discussed with pt 07/11/2023 Pure hypercholesterolemia (ICD-10 - E78.00) not high enough to treat 07/11/2023 Low HDL (under 40) (ICD-10 - E78.6) encourage to increase exercise Plan Of Treatment Treatment Notes Assessment Notes Physical exam, annual labs reviewed and discussed with pt Pure hypercholesterolemia not high enoug h to treat Low HDL (under 40) encourage to increas e exercise Next Appt Details Follow Up: 1 Year, Reason: Provider Name:Ji Lucina Junejacklyn dixon, 07/08/2025 07:45:00 AM, [address], [address], [place], [place], [phone], Provider Name:Ji metcalf, 07/15/2025 09:30:00 AM, [address], [address], [place], [place], [phone], Progress Notes * Darian MILLER FDOB:[birth year] (48 yo M)Acc No.[id number]:07/11/2023 Progress Notes Patient: Darian Hoover Provider: Carmel Valenzuela MD :1975 A ge:48 Y S ex:Male Date:07/11/2023 Address:[address] [place], [place] [phone] Subjective: * Chief Complaints: * A nnual visitNo Covid symptoms * HPI: D epression Screening: PHQ-9 L ittle interest or pleasure in doing things N ot at all, F eeling down, depressed, or hopeless N ot at all, T rouble falling or staying asleep, or sleeping too much N ot at all, F eeling tired or having little energy N ot at all, P oor appetite or overeating N ot at all, F eeling bad about yourself or that you are a failure, or have let yourself or your family down N ot at all, T rouble concentrating on things, such as reading the newspaper or watching television N ot at all, M oving or speaking so slowly that other people could have noticed; or the opposite, being so fidgety or restless that you have been moving around a lot more than usual N ot at all, T houghts that you would be better off or of hurting yourself in some way N ot at all, T otal Score 0 . I nterpretation and Intervention D epression Screening Findings N egative, F ollow-Up for Depression : review of PHQ-9 found negative result, no follow-up needed. C ommunication Needs: Communication Needs D oes the patient have a hearing impairment N o, D oes the patient have a vision impairment? Y es, I f yes, what is the vision impairment? G lasses, D oes the patient have a cognition impairment? N o. S ALEC Questions: SDOH Questions I n the past year have you been worried about losing housing? N o, I n the past year have you or any family members you live with been unable to get any of the following when it was really needed? Check all that apply: N one. S ymptom(s): pt is a 48 yo male here for yearly exam nd review of chronic illnessess. * ROS: G eneral/Constitutional: Change in appetite d enies. C hills d enies. F ever d enies. O phthalmologic: Blurred vision d enies. D ischarge d enies. P ain d enies. E NT: Decreased hearing d enies. S ore throat d enies.?Swollen glands d enies. E ndocrine: Cold intolerance d enies. E xcessive thirst d enies. H eat intolerance d enies. W eight loss d enies. R espiratory: Cough d enies. S hortness of breath at rest d enies. S hortness of breath with exertion d enies. W heezing d enies. C ardiovascular: Chest pain at rest d enies. C hest pain with exertion?denies. I rregular heartbeat d enies. S hortness of breath d enies. ? G astrointestinal: Abdominal pain d enies. C hange in bowel habits d enies. D iarrhea d enies. N ausea d enies. R ectal bleeding d enies. V omiting d enies . G enitourinary: Blood in urine d enies. D ifficulty urinating d enies. F requent urination d enies. M usculoskeletal: Painful joints d enies. W eakness d enies. ? S kin: Dry skin d enies. I tching d enies. D enies?Mole(s), changes in moles, new moles or any lesions of concern. D enies P hotosensitivity. R david d enies. N eurologic: Dizziness d enies. F ainting d enies. H eadache?denies. * Medical History: * Surgical History: * Hospitalization/Major Diagno stic Procedure: * Family History: F ather: alive 76 yrs, diagnosed with Hypertension. M other: alive 75 yrs, diagnosed with Hypertension. 1 sister(s) . 1 son(s) . . Denies mental health/substance abuse family history, Denies mental health/substance abuse family history, No pertinent family medical history, No pertinent family medical history. * Social History: T obacco Use: T obacco Use/Smoking P atient is a n onsmoker, A dditional Findings: Tobacco Non-User C urrent non-smoker, currently using no form of tobacco. D rugs/Alcohol: A lcohol Screen D id you have a drink containing alcohol in the past year? N o, P oints 0 , I nterpretation N egative. M iscellaneous: C affeine: yes, frequency:, 2-3 cups per day. Children: yes. Exercise: yes, 2 miles walk QD. Home smoke detector use: yes. Housing: owning. Living with: spouse. Marital status: . Pets: Hermit crabs,. no Travel outside of the [place]. * Medications: N one * Allergies: y es[Allergies Verified] Objective: * Vitals: H t: 65, Wt:197, BMI:32.78, BP:132/80. * P ast Orders: L ab:Comprehensive [place]. Panel Fast (Order Date - 07/04/2023) (Collection Date - 07/04/2023) Value Reference Range Sodium 140 135-145 - mmol/L Bilirubin Total 0.4 0.0-1.0 - mg/dL Aspartate Amino Transferase 23 5-37 - U/L Alanine Aminotransferase 32 0-40 - U/L Total Protein 7.0 6.5-8.0 - g/dL Albumin Level 4.1 3.5-5.0 - g/dL Alkaline Phosphatase 79 39-117 - U/L Potassium 4.4 3.3-5.1 - mmol/L Chloride 103 96-108 - mmol/L Carbon Dioxide 27 22-29 - mmol/L Anion Gap 14 12-20 - Blood Urea Nitrogen 21 H 9-16 - mg/dL Creatinine 1.21 0.5-1.4 - mg/dL Estimated Glomerular Filt Rate > 60 - Glucose Fasting 97 60-99 - mg/dL Calcium 9.5 8.4-10.2 - mg/dL L ab:Lipid Panel (Order Date - 07/04/2023) (Collection Date - 07/04/2023) Value Reference Range Triglycerides 175 H <150 - mg/dL Cholesterol 203 H <200 - mg/dL LDL Cholesterol Calculated 131 H <100 - mg/dL HDL Cholesterol 37 L >40 - mg/dL L ab:PSA,Total (Free>4and<10) (Order Date - 07/04/2023) (Collection Date - 07/04/2023) Value Reference Range PSA,Total (Free>4and<10) 1.88 0.00-4.00 - ng/ mL * Examination: G eneral Examination: GENERAL APPEARANCE: w ell developed, well nourished, in no acute distress. HEAD: n ormocephalic, atraumatic. EYES: p upils equal, round, reactive to light and accommodation, sclera non-icteric. EARS: n ormal. ORAL CAVITY: m ucosa moist. THROAT: c lear. NECK/THYROID: n janine supple, full range of motion, no cervical lymphadenopathy, no bruits. SKIN: w arm and dry, no suspicious lesions. HEART: r egular rate and rhythm, S1, S2 normal, no murmurs.? LUNGS: c lear to auscultation bilaterally. ABDOMEN: s oft, nontender, nondistended, bowel sounds present, normal, no organomegaly , no masses palpable. RECTAL EXAM: n ormal tone, no external hemorrhoids, no masses palpable, prostate normal, stool guaiac negative. MALE GENITOURINARY: n o penile lesions or discharge, circumcised, testes descended bilaterally, no testicular mass. EXTREMITIES: n o clubbing, cyanosis, or edema. NEUROLOGIC: n onfocal, motor strength normal upper and lower extremities, sensory exam intact. Assessment: * Assessment: 1. P hysical exam, annual - Z00.00 (Primary) 2 . P ure hypercholesterolemia - E78.00?3. L ow HDL (under 40) - E78.6 Plan: * Treatment: 2. P ure hypercholesterolemia Notes: not high enough to treat. 3. L ow HDL (under 40) Notes: encourage to increase exercise. * Procedure Codes: * Follow Up: 1 Year * * Sign off status: Completed true * Provider: Carmel Valenzuela MD Date: 0 07/11/2023 Generated for Nathen aburto/Melissa/Humbertosmmatthias on: 0 12/25/2024 12:56 PM EDT History and Physical Notes * HPI (History of Present Illness) Category Sub-Category Detail Notes Category Not es Symptom(s) pt is a 48 yo m [place] here for yearly exam nd review of chronic illnessess Depression Screening PHQ-9 Little inte rest or pleasure in doing things: Not at all Feeling down, depressed, or hopeless: No t at all Trouble falling or staying asleep, or sl eeping too much: Not at all Feeling tired or having little energy: N ot at all Poor appetite or overeating: Not at all Feeling bad about yourself o r that you are a failure, or have let yourself or your family down: Not at all Trouble concentrating on thi ngs, such as reading the newspaper or watching television: Not at all Moving or speaking so slowly that other people could have noticed; or the opposite, being so fidgety or restless that you have been moving around a lot more than usual: Not at all Thoughts that you would be b isaias off or of hurting yourself in some way: Not at all Total Score: 0 Interpretation and Intervention Depression Tino lombardi Findings: Negative Follow-Up for Depression: : review of PH Q-9 found negative result, no follow-up needed SDOH Questions SDOH Questions In the past year have you been worried about losing housing?: No In the past year have you or any family members you live with been unable to get any of the following when it was really needed? Check all that apply:: None Communication Needs Communication Needs Does the patient have a hearing impairment: No Does the patient have a vision impairmen t?: Yes If yes, what is the vision impairment?: Glasses Does the patient have a cognition impair ment?: No Examination Category Sub-Category Detail Notes Category Not es General Examination GENERAL APPEARANCE: well dev eloped, well nourished, in no acute distress HEAD: normocephalic, atrau matic EYES: pupils equal, round, reactive to light and accommodation, sclera non-icteric EARS: normal THROAT: clear NECK/THYROID: neck supple, full ra nge of motion, no cervical lymphadenopathy, no bruits HEART: regular rate and rhy thm, S1, S2 normal, no murmurs LUNGS: clear to auscultatio n bilaterally ABDOMEN: soft, nontender, non distended, bowel sounds present, normal, no organomegaly , no masses palpable NEUROLOGIC: nonfocal, motor stre ngth normal upper and lower extremities, sensory exam intact SKIN: warm and dry, no jovanny picious lesions EXTREMITIES: no clubbing, cyanosi s, or edema MALE GENITOURINARY: no penile lesions or discharge, circumcised, testes descended bilaterally, no testicular mass RECTAL EXAM: normal tone, no exte rnal hemorrhoids, no masses palpable, prostate normal, stool guaiac negative ORAL CAVITY: mucosa moist
--- OUTSIDE RECORDS SUMMARY | 2024-07-06 03:15 | XMS_ITS ---
Author Organization Ji Valenzuela MD Address [address] [place], [place] [phone] Care Team Providers Care Peel Oven Tender Name Role Phone Ji Valenzuela Primary Care Provider Results Component Value Reference Range Notes Complete Blood Count Auto Di ff Reviewed date:07/06/2024 06:08:16 PM Interpretation: Performing Lab:[facility], [address] [place] [id number] Notes/Report: White Blood Count 6.8 4.8-10.8 X10*3/uL Red Blood Count 4.97 4.60-5.80 X10*6/uL Hemoglobin 15.6 14.0-18.0 g/dl Hematocrit 45.5 42.0-52.0 % Mean Corpuscular Volume 91.5 80.0-98.0 fL Mean Corpuscular Hemoglobin 31.4 27.0-33.0 pg Mean Corpuscular HGB Conc 34.3 31.0-36.0 g/dl Red Cell Distribution Width 12.5 11.0-16.0 % Platelet Count 210 160-400 X10*3/uL Mean Platelet Volume 9.3 9.4-12.4 fL Neutrophils Percent Auto 49.6 45-73 % Imm Gran Pct Auto 0.3 0.0-0.4 % Lymphocytes Percent Auto 37.8 20-40 % Monocytes Percent Auto 10.1 2-11 % Eosinophils Percent Auto 1.8 0-4 % Basophils Percent Auto 0.4 0-2 % NRBC Pct Auto 0.0 0.0-0.2 /100WBC Neutrophils Absolute Auto 3.4 2.0-8.3 x10*3/u L Imm Gran Abs Auto 0.02 0.00-0.03 X10*3/uL Lymphocytes Absolute Auto 2.6 1.2-4.9 X10*3/u L Monocytes Absolute Auto 0.7 0.1-1.2 X10*3/uL Eosinophils Absolute Auto 0.1 0.0-0.4 X10*3/u L Basophils Absolute Auto 0.0 0.0-0.2 X10*3/uL NRBC Abs Auto 0.000 0.0-0.012 X10*3/uL Comprehensive [place]. Panel Fa st Reviewed date:07/06/2024 06:06:22 PM Interpretation: Performing Lab:[facility], [address] [place] [phone] Notes/Report: Sodium 140 135-145 mmol/L Potassium 3.9 3.3-5.1 mmol/L Chloride 107 96-108 mmol/L Carbon Dioxide 26 22-29 mmol/L Anion Gap 11 12-20 Blood Urea Nitrogen 17 9-16 mg/dL Creatinine 1.22 0.5-1.4 mg/dL Estimated Glomerular Filt Rate > 60 Chronic Kidney Disease: Estimated GFR < 60 mL/min/1.73m2 Severe Kidney Disease: Estimated GFR < 15 mL/min/1.73m2 Glucose Fasting 93 60-99 mg/dL Calcium 8.8 8.4-10.2 mg/dL Bilirubin Total 0.5 0.0-1.0 mg/dL Aspartate Amino Transferase 27 5-37 U/L Alanine Aminotransferase 24 0-40 U/L Total Protein 6.9 6.5-8.0 g/dL Albumin Level 4.0 3.5-5.0 g/dL Alkaline Phosphatase 73 39-117 U/L Lipid Panel Reviewed date:07/06/2024 12:45:42 PM Interpretation: Performing Lab:[address] [phone] Notes/Report: Triglycerides 121 <150 mg/dL Desirable Triglyceride: less than 150 mg/dL Borderline High Triglyceride 150-199 mg/dL High Triglyceride: 200-499 mg/dL Very High Triglyceride: greater than or equal to 5OO mg/dL Cholesterol 184 <200 mg/dL Desirable Cholesterol: less than 200 mg/dL Borderline High Cholesterol: 200-239 mg/dL High Cholesterol: greater than 239 mg/dL LDL Cholesterol Calculated 127 <100 mg/dL Desirable LDL: less than 100 mg/dL Near Optimal/Above Optimal LDL: 110-129 mg/dL Borderline High LDL: 130-159 mg/dL High LDL: 160-189 mg/dL Very High LDL: greater than or equal to 190 mg/dL HDL Cholesterol 33 >40 mg/dL Desirable HDL: greater than 40 mg/dL Note: This HDL assay may give artificially low results in patients with liver disease. PSA,Total (Free>4and<10) Reviewed date:07/06/2024 05:58:12 PM Interpretation: Performing Lab:[address] [phone] Notes/Report: PSA,Total (Free>4and<10) 1.71 0.00-4.00 ng/mL A Free PSA was not [...] (CMIA) UA ClnCatch+Micro w/rflx Cul t Reviewed date:07/06/2024 06:05:59 PM Interpretation: Performing Lab:[facility], [address] [place] [phone] Notes/Report: Urine, Clean Catch Color Urine Yellow Appearance Urine Clear PH 6.0 5.0-9.0 Glucose Urine UA Negative Negative mg/dL Urine Blood Negative Negative Specific [place] - Urine 1.020 1.005-1.025 Urine Protein Negative Neg-Trace mg/dL Urine Ketones Negative Negative mg/dL Nitrite Urine Negative Negative Leukocyte Esterase Urine Negative Negative RBC Urine 0-2 0-2 /HPF WBC Urine 0-5 0-5 /HPF Squamous Epithelial Cell Urine 0-2 0-2 /HPF Bacteria Urine None Seen None Seen Hyaline Casts Urine 0-2 0-2 /LPF REASON FOR VISIT FASTING LABS Encounters Encounter Location Date Provider Diagnosis Ji Valenzuela MD [address] [place], [place] [phone] 07/06/2024 Ji Valenzuela Blood tests for rout ine general physical examination Z00.00 and Pure hypercholesterolemia E78.00 Assessments Encounter Date Diagnosis (ICD Code) Assessment Notes Treatment Notes Treatment Clinical Notes Section Notes 07/06/2024 Blood tests for rout ine general physical examination (ICD-10 - Z00.00) 07/06/2024 Pure hypercholesterolemia (ICD-10 - E78.00) Plan Of Treatment Next Appt Details Provider Name:Ji Elizondo ieadali, 07/08/2025 07:45:00 AM, [address] [place] [address], Suite [facility], [place], [place], [phone], Provider Name:Ji metcalf, 07/15/2025 09:30:00 AM, [address] [place] [address], Suite [facility], [place], [place], [phone], Progress Notes * Darian MILLER FDOB:[birth year] (49 yo M)Acc No.[id number]:07/06/2024 Progress Note Patient: Darian NGUYEN Provider: Carmel Valenzuela MD :1975 A ge:49 Y S ex:Male Date:07/06/2024 Address:[address] [place], [place] [phone] Subjective: * Chief Complaints: * 1 . FASTING LABS. * Medical History: Objective: * Vitals: Assessment: * Assessment: 1. B lood tests for routine general physical examination - Z00.00 (Primary) 2 .?Pure hypercholesterolemia - E78.00 Plan: * Treatment: 2. P ure hypercholesterolemia L AB: Complete Blood Count Auto Diff (Order Cancelled) (Collection Date & Time - 07/06/2024 10:30 AM) L AB: Comprehensive [place]. Panel Fast (Collection Date & Time - 07/06/2024 10:30 AM) L AB: Lipid Panel (Collection Date & Time - 07/06/2024 10:30 AM) L AB: PSA,Total (Free>4and<10) (Collection Date & Time - 07/06/2024 10:30 AM) L AB: UA ClnCatch+Micro w/rflx Cult (Collection Date & Time - 07/06/2024 10:30 AM) * Procedure Codes: 3 6415 VENIPUNCT, ROUTINE* * * The named appointment provid er may or may not be the originator of this progress note, and it is not deemed complete until electronically signed by the appointment provider. Sign off status: Pending * Provider: Carmel Valenzuela MD Date: 0 07/06/2024 Generated for Nathen aburto/Melissa/Gurpreetitting on: 0 12/25/2024 12:56 PM EDT
--- OUTSIDE RECORDS SUMMARY | 2024-07-13 04:30 | XMS_ITS ---
Author Organization Ji Valenzuela MD Address [address] [place] [phone] Care Team Providers Care Water Project Engineer Name Role Phone Ji Valenzuela Primary Care Provider [phone] Allergies No Known Allergies REASON FOR VISIT ANNUAL EXAM Social History Tobacco Use: Social History Observation [...] Interpretation Negative Vital Signs Blood pressure systolic 122 mm Hg 07/14/19 25 Blood pressure diastolic 70 mm Hg 025 Height 65 in 07/13/2024 Weight 197 lbs 07/13/2024 BMI 32.78 kg/m2 07/13/2024 Encounters Encounter Location Date Provider Diagnosis Ji Valenzuela MD [address] [place] [address] Drive [address] [place] [phone] 07/13/2024 Ji Valenzuela Pure hypercholestero lemia E78.00 ; Annual physical exam Z00.00 ; Low HDL (under 40) E78.6 ; Colon cancer screening Z12.11 and Depression screening Z13.31 Assessments Encounter Date Diagnosis (ICD Code) Assessment Notes Treatment Notes Treatment Clinical Notes Section Notes 07/13/2024 Pure hypercholesterolemia (ICD-10 - E78.00) has improved, will continue to monitor 07/13/2024 Annual physical exam (ICD-10 - Z00.00) labs reviewed and discussed with patient, advised to get shingles vaccination 07/13/2024 Low HDL (under 40) (ICD-10 - E78.6) is walking and stable. 07/13/2024 Colon cancer screeni ng (ICD-10 - Z12.11) guaiac negative 07/13/2024 Depression screening (ICD-10 - Z13.31) gtive screen Plan Of Treatment Treatment Notes Assessment Notes Pure hypercholesterolemia has improved, will continue to monitor Annual physical exam labs reviewed and d iscussed with patient, advised to get shingles vaccination Low HDL (under 40) is walking and stabl e. Colon cancer screening guaiac negative Depression screening gtive screen Next Appt Details Follow Up: 1 Year, Reason: Provider Name:Ji metcalf, 07/08/2025 07:45:00 AM, [address] [place] [address], [address] [place] [address], [phone], Provider Name:Ji metcalf, 07/15/2025 09:30:00 AM, [address] [place] [address], [place] [address], [place], [place], [phone], Progress Notes * Darian MILLER FDOB:[birth year] (49 yo M)Acc No.[id number]:07/13/2024 Progress Notes Patient: Darian NGUYEN Provider: Carmel Valenzuela MD :1975 A ge:49 Y S ex:Male Date:07/13/2024 Address:[address] [place], [place] [phone] Subjective: * Chief Complaints: * A NNUAL EXAM * HPI: D epression Screening: PHQ-9 L [...] oes the patient have a vision impairment? N o, D oes the patient have a cognition [...] all that apply: N one. S ymptom(s): patient is a 49 yo male here for annual visit with review of recent labs and follow up of chronic issues. * ROS: G eneral/Constitutional: Change in appetite [...] Procedure: * Family History: F ather: alive 77 yrs, diagnosed with Hypertension. M other: alive 76 yrs, diagnosed with Hypertension. 1 sister(s) . [...] spouse. Marital status: . Pets: Hermit crabs,. Travel outside of the [place]: yes, [place]. H ousehold: H ousehold M arital status: m arried, N umber of adults in household: 2 , N umber of children in household: 1 , R eligion: C atholic, L evel of education: f [employer], F amily yearly income: N /A. * Medications: N one * Allergies: N .K.D.A.yes[Allergies Verified] Objective: * Vitals: H t: 65, Wt: 197, BMI:32.78, BP:122/70, Wt-k.36. * P ast Orders: L ab:Lipid Panel (Order Date 07/06/2024) (Collection Date & Time - 07/06/2024 10:30 AM) Value Reference Range Triglycerides 121 <150 - mg/dL Cholesterol 184 <200 - mg/dL LDL Cholesterol Calculated 127 H <100 - mg/dL HDL Cholesterol 33 L >40 - mg/dL L ab:PSA,Total (Free>4and<10) (Order Date 07/06/2024) (Collection Date & Time - 07/06/2024 10:30 AM) Value Reference Range PSA,Total (Free>4and<10) 1.71 0.00-4.00 - ng/ mL L ab:UA ClnCatch+Micro w/rflx Cult (Order Date 07/06/2024) (Collection Date & Time - 07/06/2024 10:30 AM) Value Reference Range Color Urine Yellow - Appearance Urine Clear - PH 6.0 5.0-9.0 - Glucose Urine UA Negative Negative - mg/dL Urine Blood Negative Negative - Specific [place] - Urine 1.020 1.005-1.025 - Urine Protein Negative Neg-Trace - mg/dL Urine Ketones Negative Negative - mg/dL Nitrite Urine Negative Negative - Leukocyte Esterase Urine Negative Negative - RBC Urine 0-2 0-2 - /HPF WBC Urine 0-5 0-5 - /HPF Squamous Epithelial Cell Urine 0-2 0-2 - /HP F Bacteria Urine None Seen None Seen - Hyaline Casts Urine 0-2 0-2 - /LPF L ab:Comprehensive [place]. Panel Fast (Order Date 07/06/2024) (Collection Date & Time - 07/06/2024 10:30 AM) Value Reference Range Sodium 140 135-145 - mmol/L Bilirubin Total 0.5 0.0-1.0 - mg/dL Aspartate Amino Transferase 27 5-37 - U/L Alanine Aminotransferase 24 0-40 - U/L Total Protein 6.9 6.5-8.0 - g/dL Albumin Level 4.0 3.5-5.0 - g/dL Alkaline Phosphatase 73 39-117 - U/L Potassium 3.9 3.3-5.1 - mmol/L Chloride 107 96-108 - mmol/L Carbon Dioxide 26 22-29 - mmol/L Anion Gap 11 L 12-20 - Blood Urea Nitrogen 17 H 9-16 - mg/dL Creatinine 1.22 0.5-1.4 - mg/dL Estimated Glomerular Filt Rate > 60 - Glucose Fasting 93 60-99 - mg/dL Calcium 8.8 8.4-10.2 - mg/dL * Examination: G eneral Examination: GENERAL APPEARANCE: [...] prostate normal, stool guaiac negative. MALE GENITOURINARY: c ircumcised, no testicular mass, testes descended bilaterally. EXTREMITIES: n o clubbing, cyanosis, or edema. NEUROLOGIC: n onfocal, motor strength normal upper and lower extremities, sensory exam intact. Assessment: * Assessment: 1. A nnual physical exam - Z00.00 (Primary) 2 . P ure hypercholesterolemia - E78.00 3 . L ow HDL (under 40) - E78.6 4 . C olon cancer screening - Z12.11 5 . D epression screening - Z13.31 Plan: * Treatment: 2. P ure hypercholesterolemia Notes: has improved, will continue to monitor 3. L ow HDL (under 40) Notes: is walking and stable. 4. C olon cancer screening Notes: guaiac negative 5. D epression screening Notes: gtive screen * Procedure Codes: * Preventive Medicine: Counseling: C are goal follow-up plan: C ounseling for abnormal BMI provided?Yes, A amy Normal BMI Follow-up G iving encouragement to exercise. * Follow Up: 1 Year * * Sign off status: Completed true * Provider: Carmel Valenzuela MD Date: 0 07/13/2024 Generated for Nathen aburto/Melissa/Humbertosmitting on: 0 12/25/2024 12:56 PM EDT History and Physical Notes * HPI (History of Present Illness) Category Sub-Category Detail Notes Category Not es Symptom(s) patient is a 49 yo male here for annual visit with review of recent labs and follow up of chronic issues Depression Screening PHQ-9 Little inte rest or [...] the patient have a vision impairmen t?: No Does the patient have a cognition impair [...] clubbing, cyanosi s, or edema MALE GENITOURINARY: circumcised, no test icular mass, testes descended bilaterally RECTAL EXAM: normal tone, no exte rnal hemorrhoids, no masses palpable, prostate normal, stool guaiac negative ORAL CAVITY: mucosa moist
[2024-12-25 10:59] VITALS: BMI 32.7
--- OUTSIDE RECORDS SUMMARY | 2024-12-25 12:57 | XMS_ITS | Patient Health Record ---
Author Organization Ji Valenzuela MD Address [address] [place], [place] [phone] Care Team Providers Care Radio Equipment Repairer Name Role Phone Ji Valenzuela Primary Care Provider [phone] Allergies No Known Allergies Results Component Value Reference Range Notes Comprehensive [place]. Panel Fa st Reviewed date:07/06/2024 06:06:22 PM Interpretation: Performing Lab:[facility], [address] [place] [phone] Notes/Report: Sodium 140 135-145 mmol/L Potassium 3.9 [...] Panel Reviewed date:07/06/2024 12:45:42 PM Interpretation: Performing Lab:[facility], [address] [place] [phone] Notes/Report: Triglycerides 121 <150 mg/dL Desirable Triglyceride: [...] (Free>4and<10) Reviewed date:07/06/2024 05:58:12 PM Interpretation: Performing Lab:[address] [phone] Notes/Report: PSA,Total (Free>4and<10) 1.71 0.00-4.00 ng/mL A [...] t Reviewed date:07/06/2024 06:05:59 PM Interpretation: Performing Lab:[address] [phone] Notes/Report: Urine, Clean Catch Color Urine Yellow Appearance Urine Clear PH 6.0 5.0-9.0 Glucose Urine UA Negative Negative mg/dL Urine Blood Negative Negative Specific [place] - Urine 1.020 1.005-1.025 Urine Protein Negative Neg-Trace mg/dL Urine Ketones Negative Negative mg/dL Nitrite Urine Negative Negative Leukocyte Esterase Urine Negative Negative RBC Urine 0-2 0-2 /HPF WBC Urine 0-5 0-5 /HPF Squamous Epithelial Cell Urine 0-2 0-2 /HPF Bacteria Urine None Seen None Seen Hyaline Casts Urine 0-2 0-2 /LPF Reason For Referral No Information Immunizations Vaccine [...] work Fluarix Quadrivalent Unknown 01/21/2020 Administered Wa elmoeen's SARS-COV-2 Moderna Unknown 07/18/2020 Administered SARS-COV-2 Moderna [...] Problem Status W/U Status Risk Notes Problem 715101143 Body mass index (BMI) 31.0-31.9, adult (Z68.31) Active confirmed Problem 241751528 Low HDL (under 4 0) (E78.6) Active confirmed Problem 916235991 Pure hypercholesterolemia (E78.00) Active confirmed Problem 625420998 BMI 32.0-32.9,ad ult (Z68.32) Active confirmed Problem 231417853 BMI 31.0-31.9,ad ult (Z68.31) Active confirmed Problem 33068746004340518 Plantar wart o f left foot (B07.0) Active confirmed Vital Signs Blood pressure diastolic 70 mm Hg 07/13/2024 Height 65 in 07/13/2024 Blood pressure systolic 122 mm Hg 07/13/2024 Weight 197 lbs 07/13/2024 BMI 32.78 kg/m2 07/13/2024 Encounters Encounter Location Date Provider Diagnosis Ji Valenzuela MD [address] [place], [place] [phone] 07/06/2024 Ji Valenzuela Blood tests for rout ine general physical examination Z00.00 and Pure hypercholesterolemia E78.00 Ji Valenzuela MD [address] [place], [place] [phone] 07/13/2024 Ji Valenzuela Pure hypercholestero lemia E78.00 ; Annual physical exam Z00.00 ; Low HDL (under 40) E78.6 ; Colon cancer screening Z12.11 and Depression screening Z13.31 Assessments Encounter Date Diagnosis (ICD Code) Assessment Notes Treatment Notes Treatment Clinical Notes Section Notes 07/06/2024 Blood tests for rout ine general physical examination (ICD-10 - Z00.00) 07/13/2024 Pure hypercholesterolemia (ICD-10 - E78.00) has improved, will continue to monitor 07/13/2024 Annual physical exam (ICD-10 - Z00.00) labs reviewed and discussed with patient, advised to get shingles vaccination 07/06/2024 Pure hypercholesterolemia (ICD-10 - E78.00) 07/13/2024 Low HDL (under 40) (ICD-10 - E78.6) is walking and stable. 07/13/2024 Colon cancer screeni ng (ICD-10 - Z12.11) guaiac negative 07/13/2024 Depression screening (ICD-10 - Z13.31) gtive screen Plan Of Treatment Pending Test Test Name Order Date Electrocardiogram (EKG) 04/26/2017 Electrocardiogram (EKG) 05/14/2019 Next Appt Details Provider Name:Ji metcalf, 07/08/2025 07:45:00 AM, [address] [facility], [address], [place], [place], [phone], Provider Name:Ji metcalf, 07/15/2025 09:30:00 AM, [address], [address], [place], [place], [phone], Insurance Providers Payer Name Payer Address Payer Phone Subscriber Number Group Number Insured Name Patient Relationship to Insured Coverage Start Date Coverage End Date [employer] [address] [place], [place] [id number] [phone] [id number] Darian Miller Self - patient is the insured Medical (General) History Medical History History ICD Code Colonoscopy - 06/08/14 with Marisa Jones (repeat at age 49 - 10 yrs) has appt in september 2024
--- OUTSIDE RECORDS SUMMARY | 2024-12-25 12:57 | XMS_ITS | Patient Health Record ---
Author Organization [facility] Address [address] [place] [address] Care Team Providers Care Choke Reamer Name Role Phone Ji Valenzuela MD Primary Care Provider Josue Amaral [phone] Allergies Allergen (clinical drug ingredient) Drug/Non Drug Allergy documented on EMR Reaction Allergy Type Onset Date Status seasonal (uncoded) Unknown Allergy A ctive Reason For Referral No Information Immunizations Vaccine Route Administration Date Status Comme nts Influenza Unknown 02/18/2024 Administered Problems Problem Type SNOMED Code ICD Code Onset Dates Problem Status W/U Status Risk Notes Problem Feces contents abnormal (083316920) Heme + stool (792.1) Active confirmed Problem Colon cancer screening (808562336) Colon cancer screening (Z12.11) Active confirmed Problem Preprocedural examination (704981246556334) Preprocedural examination (Z01.818) Active confirmed Vital Signs Temperature 98.2 degrees Fahrenheit 09/30/2024 Blood pressure diastolic 01 mm Hg 09/30/2024 Height 65 in 09/30/2024 Blood pressure systolic 001 mm Hg 09/30/2024 Weight 196.6 lbs 09/30/2024 BMI 32.71 kg/m2 09/30/2024 Procedures Procedure Date Ordered Date Performed Result Body Sit e COLONOSCOPY 09/30/2024 N/A Encounters Encounter Location Date Provider Diagnosis [facility] [address] [place] [address] 09/30/2024 Josue Jones Colon cancer screeni ng Z12.11 and Preprocedural examination Z01.818 [facility] [address] [facility] [address] [place] [address] 06/09/2024 Josue Jones Assessments Encounter Date Diagnosis (ICD Code) Assessment Notes Treatment Notes Treatment Clinical Notes Section Notes 09/30/2024 Colon cancer screening (ICD-10 - Z12.11) Overall, Dolores appears quite well. Gven his age, good clinical appearance, and his last colonoscopy being over 10 years ago, I did recommend a follow-up colonoscopy for further screening purposes. We did review the rationale for this in regard to colon cancer prevention. Full consent has been obtained for this, including risks of bleeding and perforation. The procedure will be done with monitored anesthesia care. Dolores was comfortable with this plan. Thank you again for allowing me to participate in Dolores's care. I shall continue to keep you advised of his progress.. 09/30/2024 Preprocedural examination (ICD-10 - Z01.818) Overall, Dolores appears quite well. Gven his age, good clinical appearance, and his last colonoscopy being over 10 years ago, I did recommend a follow-up colonoscopy for further screening purposes. We did review the rationale for this in regard to colon cancer prevention. Full consent has been obtained for this, including risks of bleeding and perforation. The procedure will be done with monitored anesthesia care. Dolores was comfortable with this plan. Thank you again for allowing me to participate in Dolores's care. I shall continue to keep you advised of his progress.. Plan Of Treatment Pending Test Test Name Order Date COLONOSCOPY 09/30/2024 Future Test Test Name Order Date COLONOSCOPY 04/09/2014 Next Appt Details Provider Name:Josue Jones , 12/30/2024 07:30:00 AM, [address] [facility] , [place], [place], [phone], Insurance Providers Payer Name Payer Address Payer Phone Subscriber Number Group Number Insured Name Patient Relationship to Insured Coverage Start Date Coverage End Date [facility] [address] [place], [place] [id number] VIVIANA MEEK DOLORES Self - patient is the insured Medical (General) History Medical History History ICD Code Denies [place],DM,CVA,Lung disease,renal dise ase Negative screening colonoscopy in 2014 Surgical History Surgery Date(Month/Year) pilonidal cyst removal X 3 tonsillectomy and adenoidectomy
[2024-12-30 06:47] VITALS: BMI 32.4
[2024-12-30] MEDS: Lactated Ringers 1,000 ML 100 ML IVCONT (07:03)
[2024-12-30 07:04] VITALS: BP 142/90; PULSE 99; RESP 18; TEMP 36.6; O2SAT 97
--- NOTE | 2024-12-30 07:26 | HO.ANESPROP2 ---
Documented by User: Jennifer Ricardo NP 12/29/24 12:10 HPI - Anesthesia Eval Consult details Narrative: 49 yr old male for colonoscopy [facility] Surgical History Surgical History (Updated 12/25/24 @ 10:56 by Maida Mckeon RN) History of excision of pilonidal cyst History of tonsillectomy and adenoidectomy H/O colonoscopy Social History Social History (System 12/11/21 @ 14:00 by Grace Parker) Are you a primary home care coordinator to a significant other at home: No Do you presently have visiting nurse or other home services: No Patient Tobacco Use Status: Never used Tobacco Have you been hit, kicked, punched, or otherwise hurt by someone within the past year? If so, by whom?: No Are you DNR?: No Advance Directives: No Advance Directives Information Provided: Yes Poor oral hygiene: No Meds Allergies Allergy/AdvReac Type Severity Reaction Status Date / Time Seasonal Allergies Allergy Unknown Verified 12/25/24 10:54 Home Medications ?Medication ?Instructions ?Recorded ?Confirmed ?Last Taken ?Type No Known Home Meds 12/25/24 12/25/24 Unknown History Exam Height,Weight and Vital Signs: Height 5 ft 5 in Weight 89.176 kg Documented by User: Melanie Burnham DO 12/30/24 07:27 [facility] Family History Family history of problems with anesthesia: No Surgical History Surgical History (Updated 12/25/24 @ 10:56 by Maida Mckeon RN) History of excision of pilonidal cyst History of tonsillectomy and adenoidectomy H/O colonoscopy History of Problems with Anesthesia: No Social History Social History (System 12/11/21 @ 14:00 by Grace Parker) Are you a primary home care coordinator to a significant other at home: No Do you presently have visiting nurse or other home services: No Patient Tobacco Use Status: Never used Tobacco Have you been hit, kicked, punched, or otherwise hurt by someone within the past year? If so, by whom?: No Are you DNR?: No Advance Directives: No Advance Directives Information Provided: Yes Poor oral hygiene: No Meds Allergies Allergy/AdvReac Type Severity Reaction Status Date / Time Seasonal Allergies Allergy Unknown Verified 12/25/24 10:54 Home Medications ?Medication ?Instructions ?Recorded ?Confirmed ?Last Taken ?Type No Known Home Meds 12/25/24 12/25/24 Unknown History Exam Exam Date and Time: 12/30/24 0727 Height,Weight and Vital Signs: Height 5 ft 5 in Weight 89.176 kg Vital Signs Temperature 97.9 F 12/30/24 07:04 Pulse Rate 99 12/30/24 07:04 Respiratory Rate 18 12/30/24 07:04 Blood Pressure 142/90 H 12/30/24 07:04 Pulse Oximetry 97 12/30/24 07:04 Oxygen Delivery Method Room Air 12/30/24 07:04 Temperature 97.9 F 12/30/24 07:04 Pulse Rate 99 12/30/24 07:04 Respiratory Rate 18 12/30/24 07:04 Blood Pressure 142/90 H 12/30/24 07:04 Pulse Oximetry 97 12/30/24 07:04 Oxygen Delivery Method Room Air 12/30/24 07:04 Airway Mallampati Class: III TM Dist: >3cm Neck ROM: Full Loose/Missing/Broken Teeth: No (patient denies any loose or broken teeth) Heart: S1S2 Lungs: CTAB Assessment and Plan Assessment Anesthesia Assessment: Anesthesia Plan Discussed and Chart Reviewed Final Anesthetic Review Family History of Problems with Anesthesia: No History of Problems with Anesthesia: No NPO: Yes ASA Class: I Final Preanesthetic Review: No Changes in Pt Med Stat, Meds/Allgs Chart Reviewed, Consent Obtained/Reviewed and Anes Risks/Benef Reviewed Patient Risk: Low Procedure Risk: Low Anesthetic Plan Anesthetic Plan: MAC: and Agree w/ Assess. and Plan Disposition: Standard PACU
[2024-12-30 08:19] VITALS: BP 90/58; PULSE 77; RESP 17; TEMP 36.1; O2SAT 96
--- NOTE | 2024-12-30 08:27 | P.BOP_ITS ---
Brief Operative Note Date of Service: 12/30/24 Pre-op diagnosis: Screening Post-op diagnosis: other (Diverticulosis) Procedure: Colonoscopy to the cecum and TI Surgeon: Josue Jones MD Anesthesia: MAC Was an Career Information Specialist used for this Procedure?: No Estimated blood loss (mL): 0 Pathology: none sent Condition: stable Disposition: PACU
[2024-12-30 08:38] VITALS: BP 106/70; PULSE 78; RESP 17; TEMP 36.2; O2SAT 97
--- NOTE | 2024-12-30 08:46 | OP_ITS ---
DATE OF SERVICE: 12/30/2024 SURGEON: Josue Jones MD INDICATIONS: The patient presents for evaluation of colorectal cancer screening. Full consent was obtained from him for this, including risks of bleeding and perforation. PREOPERATIVE DIAGNOSIS: Colorectal cancer screening. POSTOPERATIVE DIAGNOSIS: PROCEDURE PERFORMED: Colonoscopy to the cecum and terminal ileum. ESTIMATED BLOOD LOSS: COMPLICATIONS: ANESTHESIA: Medication used, monitored anesthesia care. ASSISTANTS: SPECIMENS: POSTOPERATIVE DIAGNOSES: Colorectal cancer screening, mild sigmoid diverticulosis, internal hemorrhoids. DESCRIPTION OF PROCEDURE: The patient was placed in the left lateral decubitus position. The digital rectal exam revealed no abnormalities. The Olympus video pediatric colonoscope was entered into the rectum and advanced easily to the cecum. Once in the cecum I did identify normal-appearing cecal pouch with appendiceal orifice and a normal-appearing ileocecal valve. The terminal ileum was cannulated and appeared normal. The scope was withdrawn back in the colon. The entire cecum and ileocecal valve appeared normal. Scope was slowly withdrawn assessing all mucosal surfaces carefully. Preparation was excellent. I did not visualize any sign of polyps, colitis, nor angiodysplasia. There were occasional diverticula noted in the sigmoid colon. In the rectum, scope was retroflexed visualizing small internal hemorrhoids, but no other pathology. The rectal mucosa appeared normal. Scope was straightened and withdrawn from the patient. He tolerated the procedure well and was returned to recovery area in stable condition. IMPRESSION: 1. Occasional sigmoid diverticulosis. 2. Internal hemorrhoids. Plan: The patient should have a repeat colonoscopy in 10 years for further screening. He will otherwise see me on a p.r.n. basis. This has been discussed with his . Josue Jones MD [id number] / [id number] MTDD
== END 2024-12-30 09:05 | disposition home or self-care (01) ==
PROVIDERS: PCP Internal Medicine; Visit Provider Internal Medicine
PROC: 0DJD8ZZ Inspection of Lower Intestinal Tract, Via Natural or Artificial Opening Endoscopic (ICD-10-PCS; CPT 45378; principal; 2024-12-30 07:30)
DX: Z12.11 Encounter for screening for malignant neoplasm of colon (principal); K57.30 Diverticulosis of large intestine without perforation or abscess without bleeding; K64.8 Other hemorrhoids
CPT/HCPCS: 45378; J2003; J2704